=== PATIENT | female | born 2000 | race Caucasian/White ===

== ENCOUNTER 2021-10-25 03:52 | Emergency (ER) | payer OTHER ==
[~2021-10-25] VITALS: Ht 165.1 cm; Wt 61.4 kg
[2021-10-25 04:02] VITALS: BP 132/75; TEMP 98.2
[2021-10-25] MEDS ORDERED: ALDACTONE 25MG25 M1 PO (04:02)
[2021-10-25] MEDS ORDERED: TORADOL 10MG TA10 MG PO (04:53)
[2021-10-25] MEDS ORDERED: ZOVIRAX800 MG PO (04:53)
[2021-10-25 05:09] VITALS: PULSE 102
== END 2021-10-25 05:12 | disposition home or self-care (01) ==
LOC: COL.ER 03:52
DX: N89.8 Other specified noninflammatory disorders of vagina (principal); Z20.2 Contact with and (suspected) exposure to infections with a predominantly sexual mode of transmission; Z32.02 Encounter for pregnancy test, result negative
CPT/HCPCS: J0696